=== PATIENT | female | born 1995 | race Caucasian/White ===

== ENCOUNTER 2016-11-30 04:40 | Inpatient (IN) | payer OTHER ==
[~2016-11-30] VITALS: Ht 157.5 cm; Wt 67.6 kg
[2016-11-30] MEDS ORDERED: Oxytocin 10 Unit/mL Inj IM PRN ×2 (05:20→20:50)
[2016-11-30] MEDS ORDERED: Ondansetron 2 mg/mL 2 mL Inj IVPUSH PRN (05:20)
[2016-11-30] MEDS ORDERED: Hemorrhage Kit, Post Partum XX ONE ×2 (05:20→20:50)
[2016-11-30] MEDS ORDERED: fentaNYL-PF 50 mCg/mL 2 mL Inj IVPUSH PRN (05:20)
[2016-11-30] MEDS ORDERED: Methylergonovine 0.2 mg/mL Inj IM PRN ×2 (05:20→20:50)
[2016-11-30] MEDS ORDERED: Sodium Chloride LOK Flush 10 mL Syringe IVFLUSH PRN (05:20)
[2016-11-30] MEDS ORDERED: Carboprost 250 mCg/mL Inj IM PRN ×2 (05:20→20:50)
[2016-11-30] MEDS ORDERED: Oxytocin 30 Units/500 mL LR 30 UNITS in IV Premix 1 EACH IV PRN ×3 (05:20→20:50)
[2016-11-30 06:34] LABS: Mean Corpuscular Hemoglobin 26.4 pg (27.0-35.0); Mean Corpuscular Volume 81.4 fL (81-100)
[2016-11-30] MEDS: Lactated Ringer's 1,000 ML IV PRN ×2 (10:33→11:47)
[2016-11-30] MEDS ORDERED: Lactated Ringer's 500 ML IV ONE (10:51)
[2016-11-30] MEDS: Lactated Ringer's 1,000 ML IV SCH ×2 (10:51→18:51)
[2016-11-30] MEDS ORDERED: Atropine 1 mg/10 mL (Code) Syringe IVPUSH PRN (10:55)
[2016-11-30] MEDS ORDERED: fentaNYL 2 mCg/mL-Bupiv 0.125% 100 ML EPIDURAL SCH (10:55)
[2016-11-30] MEDS ORDERED: EPHEDrine Sulfate 50 mg/mL Inj IVPUSH PRN (10:55)
[2016-11-30] MEDS ORDERED: Penicillin G K 5,000,000 Units Inj ONE (11:09)
[2016-11-30] MEDS ORDERED: 0.9% Sodium Chloride 0 ML IV ONE (11:10)
[2016-11-30] MEDS ORDERED: Dextrose 5% Minibag Plus 100 ML IV ONE (11:13)
[2016-11-30] MEDS ORDERED: Penicillin G K Inj 5,000,000 UNITS in Dextrose 5% Minibag Plus 100 ML IV ONE (11:15)
--- NOTE | 2016-11-30 11:41 | PCM.HPANE ---
Patient Data Date of Service: Nov 30, 2016 Surgeon Admitting Provider:Reynaldo Bae MD Attending Provider:Reynaldo Bae MD Primary Care Physician:Reynaldo Bae MD Other Provider: Reason for Visit Term Labor TERM LABOR Ht/WT & BMI Body Mass Index Allergies Coded Allergies: ibuprofen (Verified Allergy, Severe, severe hair loss, 11/30/16) Diabetes History Hx Diabetes?: No MRSA MRSA: No Medications Hypertension Medication: No Home Meds Incl Beta Ron: No History History of ENT Problems?: No Hx of Heart Problems?: No Hx of Respiratory Problem?: No Hx Neurologic Problems?: No Hx of GI Problems?: No Hx of Problems?: No HX of Peritoneal Dialysis: No Female Hx: Positive for:: Currently Hx Musculoskeletal Problems?: No Hx Diabetes: No Smoking Status: Never Smoker Stop/Bang Treated for Sleep Apnea?: No Do You Have a CPAP Machine?: No S-Snoring: Do You Snore Loudly: No T-Tired: feel tired, fatigued: No O-Obsered: Observed not breath: No P-Blood Pressure: treated: No B- Body Mass Index > 35 kg/m2: No A- Age over 50: No N- Neck Large Circumference: No G- Gender Male: No KATE Risk Assessment: Low Risk, <3 Yes Risk Assessment Category Category 1A: Patient has history of documented sleep apnea, and HAS NOT received any narcotic, sedative or anesthesia administration during this stay. Category 1B: Patient has history of documented sleep apnea, and HAS received any narcotic , sedative or anesthesia administration during this stay Category 2: Patient has SUSPECTED Obstructive Sleep Apnea, and HAS received any narcotic , sedative or anesthesia administration during this stay. Category 3: Patient has SUSPECTED Obstructive Sleep Apnea and HAS NOT received narcotic, sedative or anesthesia administration during this stay. Category 4: Outpatient in Procedural Areas with known sleep apnea or who screen positive for High Risk via the STOP/BANG questionnaire. Exam Exam General Appearance: Alert, Oriented X3, Cooperative, No Acute Distress HEENT/AIRWAY: MP 2 Lungs: Clear to Auscultation, Normal Air Movement Heart: Exam Unremarkable, Regular Rate/Rhythm, No Murmurs/Rubs/Gallops Meds/Labs/Diagnostics Admission Meds Current Medications Penicillin G Potassium/ Dextrose/Water (Pfizerpen Inj/ D5W Minibag Plus) 100 ml @ 100 mls/hr ONCE ONCE IV Last administered on 11/30/16t 11:25; Start at 11:15; Stop 11/30/16 at 12:14 Labs Test 11/30/16 06:10 White Blood Count 14.3th/mm3 (3.8-10.1) Red Blood Count 4.35mil/mm3 (3.90-5.20) Hemoglobin 11.5g/dL (12.0-15.6) Hematocrit 35.4% (35.0-46.0) Mean Corpuscular Volume 81.4fL (81-100) Mean Corpuscular Hemoglobin 26.4pg (27.0-35.0) Mean Corpuscular Hemoglobin Concent 32.5% (32.0-37.0) Red Cell Distribution Width 12.7% (12.3-15.4) Platelet Count 292bil/L (150-400) Plan Impression Patient chart reviewed, patient interviewed and anesthestic plan with risks, benefits, and alternatives discussed, and informed consent obtained. ASA Physical Status: ASA2 Mod Systemic Disease Anesthetic Plan: Epidural Bene/Risks/Altern/Consents: Yes HP Complete Prior to Induction: Yes Orville Alford MD Nov 30, 2016 11:40
[2016-11-30] MEDS ORDERED: Oxytocin 30 Units/500 mL LR Premix IV SCH (13:40)
[2016-11-30] MEDS: Penicillin G K Inj 3,000,000 UNITS in IV Premix 50 EACH IV SCH ×3 (15:12→20:30)
[2016-11-30] MEDS ORDERED: Sodium Chloride LOK Flush 10 mL Syringe IVFLUSH SCH (16:30)
--- NOTE | 2016-11-30 20:37 | PCM.OBVAG ---
Vaginal Delivery Date of Service Nov 30, 2016 Pre Operative Diagnosis Pre Operative Diagnosis Term Primiparous Post Operative Diagnosis Post Operative Diagnosis Spontateous vaginal delivery complicated by a posterior shoulder dystocia Procedure Obstetical Procedure: Normal Spontaneous Vaginal Delivery (after delivery of the head, a nuchal cord was transected, difficulty with anterior shoulder, posterior also difficult with a flexed elbow and hand presenting. ) Indication for Procedure Induction: Active labor, SROM, Progressed normally through labor Findings Obstetrical Findings: [place] (Female, currently gettting resuscitation for shoulder dystocia and body umbilical cord that was transected prior to delivery) , Presentation, Placenta (Intact/Normal) Analgesia/Medications Obstetrical Anesthesia: Epidural Specimen Specimens: Placenta Blood Loss & Administration Estimated Blood Loss: 250 Post Procedure Plan Post delivery Condition: Mom stable Reynaldo Bae MD Nov 30, 2016 20:37
[2016-11-30] MEDS ORDERED: Lactated Ringer's 1,000 ML IV SCH (20:48)
[2016-11-30] MEDS ORDERED: Witch Hazel-Glycerin Pads TOPICAL PRN (20:50)
[2016-11-30] MEDS ORDERED: Benzocaine (Dermoplast) 20% 60 Gm Spray TOPICAL PRN (20:50)
[2016-11-30] MEDS ORDERED: LANOlin HPA 7 Gm Ointment TOPICAL PRN (20:50)
[2016-12-01] MEDS: HYDROcodone-APAP 5-325 mg Tablet PO PRN ×3 (04:10→10:45)
[2016-12-01 07:56] LABS: Mean Corpuscular Hemoglobin 26.2 pg (27.0-35.0)
--- NOTE | 2016-12-01 09:12 | PCM.PNOBPP ---
Subjective Date of Service Dec 01, 2016 Post : Spontaneous Vaginal Delivery Lochia: Normal Pain Management: PO pain meds Gastrointestinal: Good Appetite Postop Activity: Ambulating Independently Group B Strep Results: Positive Labs Laboratory Tests 12/01/16 07:32: White Blood Count 18.3, Red Blood Count 3.67, Hemoglobin 9.6, Hematocrit 30.1, Mean Corpuscular Volume 82.0, Mean Corpuscular Hemoglobin 26.2, Mean Corpuscular Hemoglobin Concent 31.9, Red Cell Distribution Width 13.0, Platelet Count 249 Exam Vital Signs Vital Signs: VS reviewed, stable Exam Abdomen: Fundus firm Perineum: Intact : Voiding without difficulty General: Oriented X3 OB Post Assessment/Plan Pain Evaluation: Adequate Pain Control Post plan: Continue routine post care, Discharge home tomorrow Reynaldo Bae MD Dec 01, 2016 09:12
--- NOTE | 2016-12-01 21:34 | PCM.DC.OB ---
Obstetrical Discharge Summary Date of Service Dec 01, 2016 Date of hospital admission Nov 30, 2016 at 05:17 Date of Discharge: Dec 01, 2016 Providers Admitting Physician: Reynaldo Bae MD Primary Care Physician: Reynaldo Bae MD Attending Physician: Reynaldo Bae MD Problems: (1) Qualifiers: Weeks of gestation: 41 weeks Qualified Code: O48.0 - Post-term Status: Resolved ICD Code: Z33.1 Invasive procedures Date of Procedure: Nov 30, 2016 Brief History and Physical: 21yo at 41w gestation cme with SROM. Admitted, epidural after labor change. pitocin augmentation Hospital Course: with complicated delivery due to nuchal cord, shoulder dystocia and posterior shoulder dystocia due to flexed elbow. Baby resuscitated and briefly sent to nursery. Pt with good recovery -- decreasing lochia, well , adequate pain with tylenol. Discharge Medications: tylenol and PNV Discharge Diet: No restrictions Discharge Activity-General: Pelvic Rest for 6 weeks, Try not to overdue, Be up and about, Balance rest and activity, Activity as energy allows Reynaldo Bae MD Dec 01, 2016 21:34
--- NOTE | 2016-12-01 21:37 | PCM.DIOB ---
Obstetrical Disch Instruction Dates of Hospitalization Date of Hospital Admission Nov 30, 2016 at 05:17 Providers Admitting Physician: Reynaldo Bae MD Primary Care Physician: Reynaldo Bae MD Attending Physician: Reynaldo Bae MD Discharge Diagnosis Problems: (1) Qualifiers: Weeks of gestation: 41 weeks Qualified Code: O48.0 - Post-term Status: Resolved ICD Code: Z33.1 Diet Discharge Diet: No restrictions Activity Discharge Activity-General: No restrictions, Try not to overdue, Be up and about, Balance rest and activity, Activity as pain allows, Activity as energy allows Dressing and Incisional Care Hygiene: May shower Follow Up Plan Follow-up appointment: Weeks Call your provider for: Fever or Chills, Shortness of breath, Heavy vaginal bleeding, Heavy bleeding, Epigastric pain, Excessive constipation, Vaginal discomfort, Red painful breasts Reynaldo Bae MD Dec 01, 2016 21:37
--- NOTE | 2016-12-04 11:25 | PATH ---
SURGICAL PATHOLOGY Attending Physician:Reynaldo Bae MD CASE STATUS: Signed Out PATIENT NAME: SHERRI CASTRO PID: [id number] : 1995 DATE COLLECTED:11/30/2016 00:00 SPECIMEN: Placenta CLINICAL HISTORY: UNREASSURING HEART TONES 1). PLACENTA FINAL DIAGNOSIS: 1.PLACENTA: ARTEAGA PLACENTA (405 GRAMS) WITH FURCATE INSERTION OF UMBILICAL CORD, SUBAMNIOTIC HEMORRHAGE, AND INTERVILLOUS THROMBUS. ICD10 CODE O43.8 GROSS DESCRIPTION: The specimen is received in formalin, labeled with the patient's name and consists of an intact placenta and includes placental disc (405 g, 15.3 x 13.2 x 3.5 cm), umbilical cord (length-27.8 cm, diameter-0.8 x 0.5 cm) and membranes. The membranes are ruptured 7.5 cm from the free edge of the placenta and are semi-translucent. The umbilical cord has a furcate insertion 4.5 cm from the edge of the placenta and contains 3 vessels. The surface is smooth and shiny with an area of subamniotic hemorrhaging (13.5 x 6.5 cm) apparently involving the umbilical cord. No evidence of meconium is identified. The maternal surface is dark maroon with normal cotyledon formation. The placental disc is spongy and contains an intervillous thrombus (1.8 x 1.2 x 1.1 cm). No nodules or masses are identified. 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 12/03/16 JM MICRO DESCRIPTION: See diagnosis. ICD-9 CODES: CPT CODES: 1: 81852 Electronically Signed Out Farideh Leslie MD [facility] Pathology [facility], [place] [address] Technical component performed at [facility], [facility] [address], [place], [address]
== END 2016-12-01 21:50 | disposition home or self-care (01) | DRG 775 ==
LOC: FBCO 04:40 → FBC 05:17
PROVIDERS: ADMIT Family Medicine; ATTEND Family Medicine
PROC: 10E0XZZ Delivery of Products of Conception, External Approach (ICD-10-PCS; principal; 2016-11-30)
DX: O69.1XX0 Labor and delivery complicated by cord around neck, with compression, not applicable or unspecified (principal); O99.824 Streptococcus B carrier state complicating childbirth; O76 Abnormality in fetal heart rate and rhythm complicating labor and delivery; O66.0 Obstructed labor due to shoulder dystocia; Z3A.41 41 weeks gestation of pregnancy; Z37.0 Single live birth